=== PATIENT | female | born 1990 | race Caucasian/White ===

== ENCOUNTER 2017-05-21 08:43 | Emergency (ER) | payer OTHER ==
[~2017-05-21] VITALS: Ht 157.5 cm; Wt 125.0 kg
[2017-05-21 08:45] VITALS: BP 133/66
[2017-05-21] MEDS ORDERED: GUAISYP4 PO ×4 (09:16→12:54)
[2017-05-21] MEDS ORDERED: PRED20TA PO (09:16)
[2017-05-21] MEDS ORDERED: PROAAER10 INH (09:16)
== END 2017-05-21 09:48 | disposition home or self-care (01) ==
LOC: M ED 08:43
DX: J00 Acute nasopharyngitis [common cold] (principal); J06.9 Acute upper respiratory infection, unspecified; J20.9 Acute bronchitis, unspecified

== ENCOUNTER 2018-04-09 00:39 | Emergency (ER) | payer OTHER | END 2018-04-09 02:15 | disposition left against medical advice (07) | LOC: M ED 00:39 | DX: Z53.29 Procedure and treatment not carried out because of patient's decision for other reasons (principal) ==